=== PATIENT | female | born 1960 | race Caucasian/White ===

== ENCOUNTER 2021-08-14 15:53 | Observation (INO) ==
[2021-08-14 18:46] LABS: Basophils # 0.1 10*3/uL (0.0-0.2); Eosinophils # 0.8 10*3/uL (0.0-0.87); Eosinophils % 5.9 % (0.00-10.9); Hematocrit 47.1 VOL% (35.7-47.0); Hemoglobin 15.2 GM/DL (12.0-16.0); Immature Granulocytes % 0.5 %; Immature Granulocytes Absolute 0.06 #; Lymphocytes # 3.8 10*3/uL (1.4-4.0); Lymphocytes % 28.3 % (21.3-54.2); Mean Corpuscular HGB Conc 32.3 GM/DL (32-36); Mean Corpuscular Volume 96.3 FL (87-102); Mean Platelet Volume 10.7 FL (9.6-12.0); Monocytes % 9.4 % (1.7-12.7); Neutrophils % 54.9 % (38.7-73.9); Platelet Count 252 T/CUMM (130-400); Red Blood Count 4.89 MC/CUMM (3.8-5.5); Red Cell Distribution Width 14.6 % (9.3-17.3); White Blood Count 13.3 T/CUMM (4-12)
[2021-08-14 19:16] LABS: Albumin 3.2 G/DL (3.4-5.0); Bilirubin,Total 0.4 MG/DL (0.20-1.00); Calcium 9.1 MG/DL (8.5-10.1); Osmolality,Calculated 272.1 MOS/KG (273-304); Potassium 4.1 MMOL/L (3.5-5.1); Total Protein 8.5 G/DL (6.4-8.2)
[2021-08-14 19:22] LABS: Eosinophils 4 % (0-10); Lymphocytes 29 % (20-55); Platelet Estimate Normal; Segmented Neutrophils 62 % (50-85); Total Cells Counted 100
[2021-08-14 19:23] LABS: Atypical Lymphocytes Few; Polychromasia Slight
[2021-08-14] MEDS ORDERED: GLUCAGON 1 MG VIAL IM PRN (19:53)
[2021-08-14] MEDS ORDERED: hydrALAZINE 20 MG/1 ML VIAL IV PRN (19:53)
[2021-08-14] MEDS ORDERED: MORPHINE 2 MG/1 ML SYRINGE IV PRN (19:53)
[2021-08-14] MEDS ORDERED: NICOTINE 21 MG/24 HR PATCH TRANSDERM PRN (19:58)
[2021-08-14] MEDS ORDERED: DEXTROSE 10% 25 GM/250 ML BAG IV PRN (20:03)
[2021-08-14] MEDS: INSULIN REGULAR 100 UNIT/ML SUBCUT SCH (22:15)
[2021-08-14] MEDS: SODIUM CHLORIDE 0.9% 1,000 ML IV SCH (23:13)
[2021-08-15 05:33] LABS: Amorphous Crystals,Urine Occasional /HPF (Few); Bacteria,Urine Occasional /HPF (Few); Bilirubin,Urine Negative (Negative); Blood, Urine Negative (Negative); Glucose,Urine (UA) >=500 mg/dL (Negative); Ketones,Urine Negative (Negative); Mucus,Urine Occasional /LPF (Occasional); Nitrite,Urine Negative (Negative); Protein,Urine 30 MG/DL; RBC,Urine 1 /HPF (0-4); Squamous Epithelial Cell,Urine Occasional /HPF (0-10); Urine Appearance CLEAR (Clear); Urine Color Yellow (Yellow); Urine Specific Gravity 1.009 (1.001-1.035); Urine Urobilinogen < 2.0 EU/DL (<2.0)
[2021-08-15 06:09] LABS: Basophils # 0.2 10*3/uL (0.0-0.2); Basophils % 1.6 % (0.0-0.8); Eosinophils # 0.9 10*3/uL (0.0-0.87); Eosinophils % 8.2 % (0.00-10.9); Hematocrit 43.2 VOL% (35.7-47.0); Hemoglobin 13.8 GM/DL (12.0-16.0); Immature Granulocytes % 0.4 %; Immature Granulocytes Absolute 0.04 #; Lymphocytes # 3.5 10*3/uL (1.4-4.0); Lymphocytes % 33.7 % (21.3-54.2); Mean Corpuscular HGB Conc 31.9 GM/DL (32-36); Mean Corpuscular Volume 96.4 FL (87-102); Mean Platelet Volume 11.3 FL (9.6-12.0); Neutrophils % 48.1 % (38.7-73.9); Platelet Count 236 T/CUMM (130-400); Red Blood Count 4.48 MC/CUMM (3.8-5.5); Red Cell Distribution Width 14.4 % (9.3-17.3); White Blood Count 10.3 T/CUMM (4-12)
[2021-08-15 06:27] LABS: Albumin 2.9 G/DL (3.4-5.0); Bilirubin,Total 0.6 MG/DL (0.20-1.00); Calcium 8.7 MG/DL (8.5-10.1); Osmolality,Calculated 277.7 MOS/KG (273-304); Potassium 3.7 MMOL/L (3.5-5.1); Risk Ratio 2.85; Total Protein 7.7 G/DL (6.4-8.2); VLDL Cholesterol 22.2 MG/DL
[2021-08-15 06:31] LABS: Band Neutrophils 1 % (0-10); Eosinophils 6 % (0-10); Lymphocytes 30 % (20-55); Platelet Estimate Normal; Segmented Neutrophils 54 % (50-85); Total Cells Counted 100
[2021-08-15] MEDS: PANTOPRAZOLE 40 MG TABLET PO SCH (08:50)
[2021-08-15] MEDS ORDERED: LORazepam 2 MG/1 ML VIAL IV ONE (09:13)
[2021-08-15] MEDS: INSULIN REGULAR 100 UNIT/ML SUBCUT SCH ×4 (10:57→20:08)
[2021-08-15] MEDS: ASPIRIN EC 81 MG TABLET PO SCH (12:15)
[2021-08-15] MEDS: SODIUM CHLORIDE 0.9% 1,000 ML IV SCH (12:15)
[2021-08-15] MEDS: ENOXAPARIN 100 MG/ML SYRINGE SUBCUT SCH (15:35)
[2021-08-16] MEDS: ENOXAPARIN 100 MG/ML SYRINGE SUBCUT SCH (02:31)
[2021-08-16] MEDS: SODIUM CHLORIDE 0.9% 1,000 ML IV SCH (03:18)
[2021-08-16 06:12] LABS: Basophils # 0.1 10*3/uL (0.0-0.2); Basophils % 1.5 % (0.0-0.8); Eosinophils # 0.8 10*3/uL (0.0-0.87); Eosinophils % 7.9 % (0.00-10.9); Hemoglobin 14.1 GM/DL (12.0-16.0); Immature Granulocytes % 0.3 %; Immature Granulocytes Absolute 0.03 #; Lymphocytes # 3.7 10*3/uL (1.4-4.0); Lymphocytes % 39.1 % (21.3-54.2); Mean Corpuscular HGB Conc 31.3 GM/DL (32-36); Mean Corpuscular Volume 96.8 FL (87-102); Mean Platelet Volume 11.1 FL (9.6-12.0); Monocytes % 8.3 % (1.7-12.7); Neutrophils % 42.9 % (38.7-73.9); Platelet Count 222 T/CUMM (130-400); Red Blood Count 4.65 MC/CUMM (3.8-5.5); Red Cell Distribution Width 14.4 % (9.3-17.3); White Blood Count 9.6 T/CUMM (4-12)
[2021-08-16 06:34] LABS: Calcium 8.4 MG/DL (8.5-10.1); Osmolality,Calculated 278.5 MOS/KG (273-304); Potassium 3.7 MMOL/L (3.5-5.1)
[2021-08-16 08:00] LABS: Anisocytosis 1+; Band Neutrophils 8 % (0-10); Eosinophils 10 % (0-10); Lymphocytes 35 % (20-55); Platelet Estimate Normal; Segmented Neutrophils 40 % (50-85); Total Cells Counted 100
[2021-08-16 08:01] LABS: Macrocytosis Slight
[2021-08-16] MEDS: ASPIRIN EC 81 MG TABLET PO SCH (08:33)
[2021-08-16] MEDS: PANTOPRAZOLE 40 MG TABLET PO SCH ×2 (08:33→14:46)
[2021-08-16] MEDS: ACETAMINOPHEN 325 MG TABLET PO PRN ×2 (08:33→17:57)
[2021-08-16] MEDS: INSULIN REGULAR 100 UNIT/ML SUBCUT SCH ×4 (10:45→20:31)
[2021-08-16] MEDS: COENZYME Q10 100 MG CAPSULE PO SCH (12:25)
[2021-08-16] MEDS: amLODIPine 10 MG TABLET PO SCH (13:44)
[2021-08-16] MEDS: carvediloL 25 MG TABLET PO SCH ×2 (13:44→20:28)
[2021-08-16] MEDS: PARoxetine 20 MG TABLET PO SCH (13:44)
[2021-08-16] MEDS: LOSARTAN 50 MG TABLET PO SCH (13:44)
[2021-08-16] MEDS: ATORVASTATIN 10 MG TABLET PO SCH (13:44)
[2021-08-16] MEDS ORDERED: CYCLOBENZAPRINE 10 MG TABLET PO SCH (15:00)
[2021-08-16] MEDS: CYCLOBENZAPRINE 10 MG TABLET PO PRN ×2 (15:42→20:28)
[2021-08-16] MEDS: GABAPENTIN 300 MG CAPSULE PO SCH ×2 (15:42→20:28)
[2021-08-16] MEDS: QUEtiapine 100 MG TABLET PO SCH (15:42)
[2021-08-16] MEDS: DONEPEZIL 10 MG TABLET PO SCH (20:28)
[2021-08-16] MEDS: APIXABAN 5 MG TABLET PO SCH (20:28)
[2021-08-17 05:46] LABS: Basophils # 0.1 10*3/uL (0.0-0.2); Basophils % 1.5 % (0.0-0.8); Eosinophils # 0.7 10*3/uL (0.0-0.87); Eosinophils % 7.9 % (0.00-10.9); Hematocrit 43.2 VOL% (35.7-47.0); Hemoglobin 13.7 GM/DL (12.0-16.0); Immature Granulocytes % 0.4 %; Immature Granulocytes Absolute 0.03 #; Lymphocytes % 36.7 % (21.3-54.2); Mean Corpuscular HGB Conc 31.7 GM/DL (32-36); Mean Corpuscular Volume 97.3 FL (87-102); Mean Platelet Volume 11.9 FL (9.6-12.0); Monocytes % 8.2 % (1.7-12.7); Neutrophils % 45.3 % (38.7-73.9); Platelet Count 201 T/CUMM (130-400); Red Blood Count 4.44 MC/CUMM (3.8-5.5); Red Cell Distribution Width 14.3 % (9.3-17.3); White Blood Count 8.3 T/CUMM (4-12)
[2021-08-17 06:10] LABS: Calcium 9.1 MG/DL (8.5-10.1); Osmolality,Calculated 274.8 MOS/KG (273-304); Potassium 3.9 MMOL/L (3.5-5.1)
[2021-08-17] MEDS: APIXABAN 5 MG TABLET PO SCH ×2 (10:41→22:55)
[2021-08-17] MEDS: QUEtiapine 100 MG TABLET PO SCH (10:42)
[2021-08-17] MEDS: ATORVASTATIN 10 MG TABLET PO SCH (10:42)
[2021-08-17] MEDS: amLODIPine 10 MG TABLET PO SCH (10:42)
[2021-08-17] MEDS: PARoxetine 20 MG TABLET PO SCH (10:43)
[2021-08-17] MEDS: ASPIRIN EC 81 MG TABLET PO SCH (10:43)
[2021-08-17] MEDS: LOSARTAN 50 MG TABLET PO SCH (10:43)
[2021-08-17] MEDS: PANTOPRAZOLE 40 MG TABLET PO SCH (10:44)
[2021-08-17] MEDS: carvediloL 25 MG TABLET PO SCH ×2 (10:44→22:56)
[2021-08-17] MEDS: GABAPENTIN 300 MG CAPSULE PO SCH ×3 (10:45→22:56)
[2021-08-17] MEDS: traMADol 50 MG TABLET PO PRN ×2 (10:46→17:42)
[2021-08-17] MEDS: COENZYME Q10 100 MG CAPSULE PO SCH (10:47)
[2021-08-17] MEDS: INSULIN REGULAR 100 UNIT/ML SUBCUT SCH ×3 (15:00→22:59)
[2021-08-17] MEDS: CYCLOBENZAPRINE 10 MG TABLET PO PRN (22:55)
[2021-08-17] MEDS: DONEPEZIL 10 MG TABLET PO SCH (22:56)
[2021-08-18] MEDS: traMADol 50 MG TABLET PO PRN ×2 (01:50→09:38)
[2021-08-18 05:31] LABS: Basophils # 0.1 10*3/uL (0.0-0.2); Basophils % 1.3 % (0.0-0.8); Eosinophils # 0.8 10*3/uL (0.0-0.87); Eosinophils % 8.2 % (0.00-10.9); Hematocrit 44.3 VOL% (35.7-47.0); Immature Granulocytes % 0.5 %; Immature Granulocytes Absolute 0.05 #; Lymphocytes # 3.4 10*3/uL (1.4-4.0); Lymphocytes % 35.2 % (21.3-54.2); Mean Corpuscular HGB Conc 31.6 GM/DL (32-36); Mean Corpuscular Volume 97.1 FL (87-102); Mean Platelet Volume 11.5 FL (9.6-12.0); Monocytes % 7.7 % (1.7-12.7); Neutrophils % 47.1 % (38.7-73.9); Platelet Count 207 T/CUMM (130-400); Red Blood Count 4.56 MC/CUMM (3.8-5.5); Red Cell Distribution Width 14.3 % (9.3-17.3); White Blood Count 9.6 T/CUMM (4-12)
[2021-08-18 05:45] LABS: Potassium 3.8 MMOL/L (3.5-5.1)
[2021-08-18] MEDS: carvediloL 25 MG TABLET PO SCH ×2 (09:34→21:36)
[2021-08-18] MEDS: PARoxetine 20 MG TABLET PO SCH (09:34)
[2021-08-18] MEDS: COENZYME Q10 100 MG CAPSULE PO SCH (09:34)
[2021-08-18] MEDS: LOSARTAN 50 MG TABLET PO SCH (09:34)
[2021-08-18] MEDS: ASPIRIN EC 81 MG TABLET PO SCH (09:34)
[2021-08-18] MEDS: amLODIPine 10 MG TABLET PO SCH (09:37)
[2021-08-18] MEDS: QUEtiapine 100 MG TABLET PO SCH (09:37)
[2021-08-18] MEDS: ATORVASTATIN 10 MG TABLET PO SCH (09:37)
[2021-08-18] MEDS: PANTOPRAZOLE 40 MG TABLET PO SCH (09:38)
[2021-08-18] MEDS: APIXABAN 5 MG TABLET PO SCH ×2 (09:38→21:35)
[2021-08-18] MEDS: GABAPENTIN 300 MG CAPSULE PO SCH ×3 (09:39→21:35)
[2021-08-18] MEDS: INSULIN REGULAR 100 UNIT/ML SUBCUT SCH ×4 (09:39→21:41)
[2021-08-18] MEDS: ONDANSETRON 4 MG/2 ML VIAL IV PRN (09:48)
[2021-08-18] MEDS: ACETAMINOPHEN 325 MG TABLET PO PRN (13:12)
[2021-08-18] MEDS: DONEPEZIL 10 MG TABLET PO SCH (21:36)
[2021-08-19] MEDS: traMADol 50 MG TABLET PO PRN ×3 (00:47→21:04)
[2021-08-19 05:19] LABS: Basophils # 0.1 10*3/uL (0.0-0.2); Basophils % 1.2 % (0.0-0.8); Eosinophils # 0.7 10*3/uL (0.0-0.87); Eosinophils % 7.2 % (0.00-10.9); Hematocrit 43.2 VOL% (35.7-47.0); Hemoglobin 13.6 GM/DL (12.0-16.0); Immature Granulocytes % 0.3 %; Immature Granulocytes Absolute 0.03 #; Lymphocytes # 3.3 10*3/uL (1.4-4.0); Lymphocytes % 32.4 % (21.3-54.2); Mean Corpuscular HGB Conc 31.5 GM/DL (32-36); Mean Corpuscular Volume 98.2 FL (87-102); Mean Platelet Volume 11.9 FL (9.6-12.0); Monocytes % 7.7 % (1.7-12.7); Neutrophils % 51.2 % (38.7-73.9); Platelet Count 188 T/CUMM (130-400); Red Cell Distribution Width 14.4 % (9.3-17.3); White Blood Count 10.2 T/CUMM (4-12)
[2021-08-19 05:38] LABS: Calcium 8.8 MG/DL (8.5-10.1); Osmolality,Calculated 279.8 MOS/KG (273-304); Potassium 3.8 MMOL/L (3.5-5.1)
[2021-08-19] MEDS: LOSARTAN 50 MG TABLET PO SCH (08:53)
[2021-08-19] MEDS: ASPIRIN EC 81 MG TABLET PO SCH (08:53)
[2021-08-19] MEDS: QUEtiapine 100 MG TABLET PO SCH (08:53)
[2021-08-19] MEDS: COENZYME Q10 100 MG CAPSULE PO SCH (08:54)
[2021-08-19] MEDS: GABAPENTIN 300 MG CAPSULE PO SCH ×3 (08:54→21:03)
[2021-08-19] MEDS: carvediloL 25 MG TABLET PO SCH ×2 (08:54→21:03)
[2021-08-19] MEDS: APIXABAN 5 MG TABLET PO SCH ×2 (08:54→21:03)
[2021-08-19] MEDS: PARoxetine 20 MG TABLET PO SCH (08:54)
[2021-08-19] MEDS: ATORVASTATIN 40 MG TABLET PO SCH (08:55)
[2021-08-19] MEDS: PANTOPRAZOLE 40 MG TABLET PO SCH (08:55)
[2021-08-19] MEDS: amLODIPine 10 MG TABLET PO SCH (08:55)
[2021-08-19] MEDS: INSULIN REGULAR 100 UNIT/ML SUBCUT SCH ×4 (08:56→21:04)
[2021-08-19] MEDS: DONEPEZIL 10 MG TABLET PO SCH (21:03)
[2021-08-19] MEDS: CYCLOBENZAPRINE 10 MG TABLET PO PRN (23:39)
[2021-08-20] MEDS: traMADol 50 MG TABLET PO PRN ×3 (04:12→21:39)
[2021-08-20 05:44] LABS: Basophils # 0.2 10*3/uL (0.0-0.2); Basophils % 1.4 % (0.0-0.8); Eosinophils # 0.8 10*3/uL (0.0-0.87); Eosinophils % 7.3 % (0.00-10.9); Hematocrit 43.1 VOL% (35.7-47.0); Hemoglobin 13.5 GM/DL (12.0-16.0); Immature Granulocytes % 0.3 %; Immature Granulocytes Absolute 0.03 #; Lymphocytes # 3.7 10*3/uL (1.4-4.0); Lymphocytes % 34.5 % (21.3-54.2); Mean Corpuscular HGB Conc 31.3 GM/DL (32-36); Mean Platelet Volume 12.4 FL (9.6-12.0); Monocytes % 7.4 % (1.7-12.7); Neutrophils % 49.1 % (38.7-73.9); Platelet Count 188 T/CUMM (130-400); Red Cell Distribution Width 14.6 % (9.3-17.3); White Blood Count 10.8 T/CUMM (4-12)
[2021-08-20 06:08] LABS: Calcium 8.5 MG/DL (8.5-10.1); Osmolality,Calculated 283.5 MOS/KG (273-304); Potassium 3.8 MMOL/L (3.5-5.1)
[2021-08-20] MEDS: INSULIN REGULAR 100 UNIT/ML SUBCUT SCH ×4 (08:57→22:53)
[2021-08-20] MEDS: APIXABAN 5 MG TABLET PO SCH ×2 (08:58→21:38)
[2021-08-20] MEDS: PARoxetine 20 MG TABLET PO SCH (08:58)
[2021-08-20] MEDS: PANTOPRAZOLE 40 MG TABLET PO SCH (08:58)
[2021-08-20] MEDS: amLODIPine 10 MG TABLET PO SCH (08:58)
[2021-08-20] MEDS: GABAPENTIN 300 MG CAPSULE PO SCH ×3 (08:58→21:39)
[2021-08-20] MEDS: LOSARTAN 50 MG TABLET PO SCH (08:59)
[2021-08-20] MEDS: COENZYME Q10 100 MG CAPSULE PO SCH (08:59)
[2021-08-20] MEDS: carvediloL 25 MG TABLET PO SCH ×2 (08:59→21:38)
[2021-08-20] MEDS: ASPIRIN EC 81 MG TABLET PO SCH (08:59)
[2021-08-20] MEDS: ATORVASTATIN 40 MG TABLET PO SCH (08:59)
[2021-08-20] MEDS: QUEtiapine 100 MG TABLET PO SCH (08:59)
[2021-08-20] MEDS: DONEPEZIL 10 MG TABLET PO SCH (21:38)
[2021-08-21] MEDS: ACETAMINOPHEN 325 MG TABLET PO PRN ×2 (00:34→03:59)
[2021-08-21] MEDS: traMADol 50 MG TABLET PO PRN ×2 (07:03→18:10)
[2021-08-21] MEDS: INSULIN REGULAR 100 UNIT/ML SUBCUT SCH ×4 (08:37→20:49)
[2021-08-21] MEDS: PANTOPRAZOLE 40 MG TABLET PO SCH (09:57)
[2021-08-21] MEDS: COENZYME Q10 100 MG CAPSULE PO SCH (09:57)
[2021-08-21] MEDS: APIXABAN 5 MG TABLET PO SCH ×2 (09:58→22:09)
[2021-08-21] MEDS: PARoxetine 20 MG TABLET PO SCH (09:58)
[2021-08-21] MEDS: GABAPENTIN 300 MG CAPSULE PO SCH ×3 (09:58→22:09)
[2021-08-21] MEDS: amLODIPine 10 MG TABLET PO SCH (09:58)
[2021-08-21] MEDS: ATORVASTATIN 40 MG TABLET PO SCH (09:58)
[2021-08-21] MEDS: QUEtiapine 100 MG TABLET PO SCH (09:58)
[2021-08-21] MEDS: ASPIRIN EC 81 MG TABLET PO SCH (09:58)
[2021-08-21] MEDS: CYCLOBENZAPRINE 10 MG TABLET PO PRN ×2 (10:02→19:03)
[2021-08-21] MEDS: LOSARTAN 50 MG TABLET PO SCH (10:06)
[2021-08-21] MEDS: carvediloL 25 MG TABLET PO SCH ×2 (10:06→22:09)
[2021-08-21] MEDS: DONEPEZIL 10 MG TABLET PO SCH (22:09)
[2021-08-22] MEDS: GABAPENTIN 300 MG CAPSULE PO SCH ×3 (08:44→21:56)
[2021-08-22] MEDS: carvediloL 25 MG TABLET PO SCH ×2 (08:44→21:56)
[2021-08-22] MEDS: LOSARTAN 50 MG TABLET PO SCH (08:44)
[2021-08-22] MEDS: PANTOPRAZOLE 40 MG TABLET PO SCH (08:44)
[2021-08-22] MEDS: amLODIPine 10 MG TABLET PO SCH (08:44)
[2021-08-22] MEDS: ATORVASTATIN 40 MG TABLET PO SCH (08:44)
[2021-08-22] MEDS: APIXABAN 5 MG TABLET PO SCH ×2 (08:44→21:56)
[2021-08-22] MEDS: COENZYME Q10 100 MG CAPSULE PO SCH (08:44)
[2021-08-22] MEDS: PARoxetine 20 MG TABLET PO SCH (08:45)
[2021-08-22] MEDS: INSULIN REGULAR 100 UNIT/ML SUBCUT SCH ×4 (08:45→21:55)
[2021-08-22] MEDS: QUEtiapine 100 MG TABLET PO SCH (08:45)
[2021-08-22] MEDS: ASPIRIN EC 81 MG TABLET PO SCH (08:45)
[2021-08-22] MEDS: ACETAMINOPHEN 325 MG TABLET PO PRN (11:20)
[2021-08-22] MEDS: DONEPEZIL 10 MG TABLET PO SCH (21:55)
[2021-08-22] MEDS: traMADol 50 MG TABLET PO PRN (22:04)
[2021-08-23] MEDS: ONDANSETRON 4 MG/2 ML VIAL IV PRN ×2 (03:54→14:17)
[2021-08-23 06:30] LABS: Basophils # 0.1 10*3/uL (0.0-0.2); Basophils % 1.3 % (0.0-0.8); Eosinophils # 0.6 10*3/uL (0.0-0.87); Eosinophils % 6.5 % (0.00-10.9); Hematocrit 44.6 VOL% (35.7-47.0); Hemoglobin 14.3 GM/DL (12.0-16.0); Immature Granulocytes % 0.3 %; Immature Granulocytes Absolute 0.03 #; Lymphocytes # 3.1 10*3/uL (1.4-4.0); Lymphocytes % 31.1 % (21.3-54.2); Mean Corpuscular HGB Conc 32.1 GM/DL (32-36); Mean Corpuscular Volume 96.3 FL (87-102); Mean Platelet Volume 12.9 FL (9.6-12.0); Monocytes % 12.8 % (1.7-12.7); Platelet Count 213 T/CUMM (130-400); Red Blood Count 4.63 MC/CUMM (3.8-5.5); Red Cell Distribution Width 14.5 % (9.3-17.3); White Blood Count 9.8 T/CUMM (4-12)
[2021-08-23 06:50] LABS: Calcium 8.9 MG/DL (8.5-10.1); Osmolality,Calculated 273.2 MOS/KG (273-304); Potassium 4.1 MMOL/L (3.5-5.1)
[2021-08-23] MEDS: INSULIN REGULAR 100 UNIT/ML SUBCUT SCH ×4 (07:53→21:30)
[2021-08-23] MEDS: COENZYME Q10 100 MG CAPSULE PO SCH (11:16)
[2021-08-23] MEDS: ATORVASTATIN 40 MG TABLET PO SCH (11:16)
[2021-08-23] MEDS: carvediloL 25 MG TABLET PO SCH ×2 (11:17→21:29)
[2021-08-23] MEDS: APIXABAN 5 MG TABLET PO SCH ×2 (11:17→21:30)
[2021-08-23] MEDS: LOSARTAN 50 MG TABLET PO SCH (11:17)
[2021-08-23] MEDS: PARoxetine 20 MG TABLET PO SCH (11:17)
[2021-08-23] MEDS: PANTOPRAZOLE 40 MG TABLET PO SCH (11:17)
[2021-08-23] MEDS: QUEtiapine 100 MG TABLET PO SCH (11:17)
[2021-08-23] MEDS: amLODIPine 10 MG TABLET PO SCH (11:18)
[2021-08-23] MEDS: ASPIRIN EC 81 MG TABLET PO SCH (11:18)
[2021-08-23] MEDS: GABAPENTIN 300 MG CAPSULE PO SCH ×3 (11:18→21:29)
[2021-08-23] MEDS: DONEPEZIL 10 MG TABLET PO SCH (21:30)
[2021-08-23] MEDS: traMADol 50 MG TABLET PO PRN (21:44)
[2021-08-24] MEDS: CYCLOBENZAPRINE 10 MG TABLET PO PRN (01:03)
[2021-08-24 07:29] VITALS: BP 133/54
[2021-08-24 07:44] LABS: Osmolality,Calculated 280.5 MOS/KG (273-304); Potassium 4.1 MMOL/L (3.5-5.1)
[2021-08-24] MEDS: PANTOPRAZOLE 40 MG TABLET PO SCH (08:44)
[2021-08-24] MEDS: ATORVASTATIN 40 MG TABLET PO SCH (08:44)
[2021-08-24] MEDS: PARoxetine 20 MG TABLET PO SCH (08:44)
[2021-08-24] MEDS: APIXABAN 5 MG TABLET PO SCH (08:45)
[2021-08-24] MEDS: QUEtiapine 100 MG TABLET PO SCH (08:45)
[2021-08-24] MEDS: amLODIPine 10 MG TABLET PO SCH (08:45)
[2021-08-24] MEDS: GABAPENTIN 300 MG CAPSULE PO SCH (08:45)
[2021-08-24] MEDS: COENZYME Q10 100 MG CAPSULE PO SCH (08:45)
[2021-08-24] MEDS: LOSARTAN 50 MG TABLET PO SCH (08:45)
[2021-08-24] MEDS: carvediloL 25 MG TABLET PO SCH (08:46)
[2021-08-24] MEDS: INSULIN REGULAR 100 UNIT/ML SUBCUT SCH (08:46)
[2021-08-24] MEDS: ASPIRIN EC 81 MG TABLET PO SCH (08:46)
[2021-08-24 12:53] LABS: Hematocrit 43.6 VOL% (35.7-47.0); Hemoglobin 14.1 GM/DL (12.0-16.0); Lymphocytes % 36.9 % (21.3-54.2); Mean Corpuscular HGB Conc 32.3 GM/DL (32-36); Mean Corpuscular Volume 96.5 FL (87-102); Mean Platelet Volume 12.8 FL (9.6-12.0); Neutrophils % 42.1 % (38.7-73.9); Platelet Count 202 T/CUMM (130-400); Red Blood Count 4.52 MC/CUMM (3.8-5.5); Red Cell Distribution Width 14.4 % (9.3-17.3); White Blood Count 9.1 T/CUMM (4-12)
[2021-08-24 12:54] LABS: Basophils # 0.1 10*3/uL (0.0-0.2); Basophils % 1.2 % (0.0-0.8); Eosinophils # 0.8 10*3/uL (0.0-0.87); Eosinophils % 8.9 % (0.00-10.9); Immature Granulocytes % 0.2 %; Immature Granulocytes Absolute 0.02 #; Lymphocytes # 3.4 10*3/uL (1.4-4.0); Monocytes % 10.7 % (1.7-12.7)
[2021-08-28 22:41] LABS: CDT Result Negative (Negative); CDT Specimen Source STOOL
== END 2021-08-24 11:39 | disposition swing bed (61) ==
LOC: EDBD → EDUNIT# → N.ED 15:53 → N.5E 19:51 → INTOOBSV 19:51 → SUATTDRO 19:51 → N.5E 21:25
PROVIDERS: ADMIT Internal Medicine; ATTEND Hospitalist